=== PATIENT | male | born 1940 | race Caucasian/White ===

== ENCOUNTER → 2016-10-26 | Day surgery (SDC) | payer OTHER, MEDICARE ==
[~2016-10-26] VITALS: Ht 170.2 cm; Wt 68.0 kg
[~2016-10-26] MED LIST: COSOPT EYE DROP10 ML OPH; DORZOLAMIDE HYD10 M3 OP; LOPRESSOR 25MG25 MG PO; TOPROL XL25 M1 PO; TRAVATAN Z50 GTT/1 B OPH; WARFARIN SODIUM1 MG PO; ZANTAC150 M1 PO; ZOLPIDEM TARTRA10 MG PO
[2016-10-26 09:28] LABS: PT 12.7 SEC (9.4-12.5)
--- NOTE | 2016-10-26 14:46 | Operative Report ---
Operative/Inv Procedure Report Surgery Date: 10/26/16 Name of Procedure: 3 column internal/external hemorrhoidectomy Pre-Operative Diagnosis: Hemorrhoids Post-Operative Diagnosis: Same Estimated Blood Loss: less than 50ml Surgeon/Daycare Manager: DADA DUARTE MD Anesthesia: local monitored anesthesi Operative/Procedure Note Note: After consent is brought to the operating room and laid supine. Sedation was obtained his placed in lithotomy position. Perianal block was created with a cocktail local anesthesia. Digital rectal examination was unrevealing. Proctoscopy was performed with a Hill-Rollins retractor. There were 3 columns of hemorrhoidal tissue. The largest was on the right anterior. There is normal left anterior and right posterior. We began at the largest one in infiltrated the perianal skin with local anesthesia. An ellipse of skin to encompass the external component was incised sharply. Care dissection down to the sphincter muscles. The venous pedicle was then dissected free up to the upper extent of the hemorrhoid. The mucosa was cauterized anteriorly in the hemorrhoidal tissue suture ligated with 3-0 Vicryl. The specimen was passed off the field. They mucosa was closed over the defect with a running 4-0 chromic gut. In a similar fashion 2 other columns were taken as outlined above. Once were happy with the dissection hemostasis was assessed and achieved with direct pressure. A bacitracin ointment was placed on the gauze. Sterile dressings were applied. Sponge counts are correct CC: CARYL COMBS,PRABHAKAR Kirby
== END ==
LOC: STS 03:09
PROVIDERS: Surgery
DX: K64.8 Other hemorrhoids (principal); I48.91 Unspecified atrial fibrillation; Z79.01 Long term (current) use of anticoagulants; I10 Essential (primary) hypertension
CPT/HCPCS: 36415; 88304; J2250